=== PATIENT | male | born 1970 | race African-American/Black ===

== ENCOUNTER 2022-06-22 09:36 | Emergency (ER) | payer OTHER ==
[~2022-06-22] VITALS: Ht 175.3 cm; Wt 101.0 kg
[2022-06-22] MEDS ORDERED: TETANUS, DIPHTHERIA, PERTUSSIS VAC/PF 0.5ML (>10YR OLD) IM ONE (13:30)
[2022-06-22] MEDS ORDERED: HYDROCODONE/ACETAMINOPHEN 5/325MG TABLET PO ONE (13:30)
[2022-06-22 13:54] VITALS: BP 173/103
[2022-06-22] MEDS ORDERED: BACITRACIN ZINC OINT UDPKT TOP ONE (14:15)
[2022-06-22] MEDS ORDERED: T3 PO (14:30)
[2022-06-22] MEDS ORDERED: IBUP-2029 MT (14:30)
[2022-06-22] MEDS ORDERED: CEPH500C2 MT (14:30)
== END 2022-06-22 14:45 | disposition home or self-care (01) ==
LOC: ER 09:36
DX: S62.605A Fracture of unspecified phalanx of left ring finger, initial encounter for closed fracture (principal); X58.XXXA Exposure to other specified factors, initial encounter; Y93.89 Activity, other specified; Y92.89 Other specified places as the place of occurrence of the external cause; Y99.8 Other external cause status
CPT/HCPCS: 73140; 90471; 90715; 99283; Z7610